=== PATIENT | female | born 1965 | race Caucasian/White ===

== ENCOUNTER 2018-08-18 11:04 | Outpatient (CLI) | payer BC | END 2018-08-18 11:05 | disposition home or self-care (01) | LOC: BICMAMMO 11:04 | PROVIDERS: ATTEND Student in an Organized Health Care Education/Training Program | DX: Z12.31 Encounter for screening mammogram for malignant neoplasm of breast (principal); Z80.3 Family history of malignant neoplasm of breast | CPT/HCPCS: 77063; 77067 ==

== ENCOUNTER 2021-11-24 13:44 | Outpatient (CLI) | payer BC | END 2021-11-24 13:45 | disposition home or self-care (01) | LOC: BICMAMMO 13:44 | PROVIDERS: ATTEND Specialist | DX: Z12.31 Encounter for screening mammogram for malignant neoplasm of breast (principal); Z53.9 Procedure and treatment not carried out, unspecified reason | CPT/HCPCS: 76098 ==

== ENCOUNTER 2021-12-09 09:08 | Outpatient (CLI) | payer BC | END 2021-12-09 09:09 | disposition home or self-care (01) | LOC: BICMAMMO 09:08 | PROVIDERS: ATTEND Internal Medicine Hematology & Oncology | DX: Z13.820 Encounter for screening for osteoporosis (principal) | CPT/HCPCS: 77080 ==